=== PATIENT | male | born 1965 | race Hispanic/Latino ===

== ENCOUNTER → 2022-01-19 | Outpatient (CLI) | payer BC ==
[~2022-01-19] MED LIST: AMLO10TA4 PO; METO50 PO; SULF1TAB42 PO; TRAM50TA4 PO
[2022-01-19 12:34] LABS: BASOPHILS % (AUTO) 0.4 % (0.0-5.0); HEMATOCRIT 44.7 % (42-54); MEAN CORPUSCULAR HEMOGLOBIN 32.5 pg (27.0-33.0); MEAN CORPUSCULAR HGB CONC 33.8 g/dL (32.0-36.0); MEAN CORPUSCULAR VOLUME 96.3 fL (79-99); MONOCYTES % (AUTO) 13.9 % (3.0-13.0); NEUTROPHILS % (AUTO) 48.4 % (40.0-77.0); PLATELET COUNT (AUTO) 243 K/uL (130-400); RED BLOOD CELL COUNT(AUTO) 4.64 MIL/uL (4.50-6.20); RED CELL DISTRIBUTION WIDTH 12.6 % (11.0-15.5); WHITE BLOOD COUNT (AUTO) 6.9 K/uL (4.8-10.8)
[2022-01-19 13:00] LABS: ALBUMIN 3.6 g/dL (3.5-5.0); CREATININE 0.8 mg/dL (0.5-1.5); POTASSIUM 3.9 mmol/L (3.5-5.1); TOTAL PROTEIN, SERUM 7.2 g/dL (6.0-8.3)
== END | disposition home or self-care (01) ==
LOC: LAB 08:25
PROVIDERS: ATTEND Internal Medicine Cardiovascular Disease
DX: I10 Essential (primary) hypertension (principal); R07.9 Chest pain, unspecified; E78.00 Pure hypercholesterolemia, unspecified
CPT/HCPCS: 36415; 80053; 80061; 85025

== ENCOUNTER 2022-03-17 05:53 | Emergency (ER) | payer BC ==
[~2022-03-17] VITALS: Ht 162.6 cm; Wt 90.7 kg
[2022-03-17 06:15] LABS: BASOPHILS % (AUTO) 0.5 % (0.0-5.0); EOSINOPHILS % (AUTO) 1.8 % (0.0-8.0); HEMATOCRIT 44.1 % (42-54); LYMPHOCYTES % (AUTO) 32.9 % (21.0-51.0); MEAN CORPUSCULAR HEMOGLOBIN 33.1 pg (27.0-33.0); MEAN CORPUSCULAR HGB CONC 34.5 g/dL (32.0-36.0); MEAN CORPUSCULAR VOLUME 96.1 fL (79-99); MONOCYTES % (AUTO) 12.6 % (3.0-13.0); NEUTROPHILS % (AUTO) 51.9 % (40.0-77.0); PLATELET COUNT (AUTO) 187 K/uL (130-400); RED BLOOD CELL COUNT(AUTO) 4.59 MIL/uL (4.50-6.20); RED CELL DISTRIBUTION WIDTH 12.4 % (11.0-15.5); WHITE BLOOD COUNT (AUTO) 7.7 K/uL (4.8-10.8)
[2022-03-17 06:29] LABS: ALBUMIN 3.4 g/dL (3.5-5.0); CREATININE 0.8 mg/dL (0.5-1.5); POTASSIUM 4.5 mmol/L (3.5-5.1); TOTAL PROTEIN, SERUM 7.1 g/dL (6.0-8.3)
[2022-03-17] MEDS ORDERED: MECLIZINE HCL 25 MG TABLET PO ONE (06:30)
[2022-03-17 07:10] LABS: AMPHET/METH SCREEN,URINE NEGATIVE (NEGATIVE); BARBITURATE SCREEN, URINE NEGATIVE (NEGATIVE); BENZODIAZEPINES SCREEN,URINE NEGATIVE (NEGATIVE); CANNABINOID SCREEN,URINE NEGATIVE (NEGATIVE); COCAINE SCREEN,URINE NEGATIVE (NEGATIVE); OPIATE SCREEN,URINE NEGATIVE (NEGATIVE); PHENCYCLIDINE SCREEN,URINE NEGATIVE (NEGATIVE)
[2022-03-17 07:17] LABS: APPEARANCE,URINE CLEAR (CLEAR); BILIRUBIN,URINE NEGATIVE (NEGATIVE); COLOR,URINE LIGHT-YELLOW (YELLOW); GLUCOSE, URINE (UA) NEGATIVE (NEGATIVE); KETONES,URINE NEGATIVE (NEGATIVE); LEUKOCYTE ESTERASE ,URINE NEGATIVE Leu/uL (NEGATIVE); NITRATE,URINE NEGATIVE (NEGATIVE); OCCULT BLOOD,URINE SMALL (NEGATIVE); PH,URINE 5.5 (5.0-8.0); PROTEIN,URINE NEGATIVE (NEGATIVE); UROBILINOGEN,URINE 0.2 mg/dL (0.2-1.0)
[2022-03-17 07:22] LABS: MUCUS,URINE RARE LPF (None Seen); WBC,URINE 0-1 /HPF (0-1)
[2022-03-17] MEDS ORDERED: MECL-160 PO (07:43)
[2022-03-17 08:27] VITALS: BP 146/71
== END 2022-03-17 08:29 | disposition home or self-care (01) ==
LOC: EDH 05:53
DX: H81.10 Benign paroxysmal vertigo, unspecified ear (principal); E78.00 Pure hypercholesterolemia, unspecified; I10 Essential (primary) hypertension; Z79.899 Other long term (current) drug therapy; Z88.5 Allergy status to narcotic agent; Z95.5 Presence of coronary angioplasty implant and graft
CPT/HCPCS: 36415; 70450; 80053; 80305; 81001; 85025; 93005

== ENCOUNTER → 2023-05-02 | Outpatient (CLI) | payer BC ==
[~2023-05-02] MED LIST changes: +MECL-160 PO
[2023-05-02 11:08] LABS: ALBUMIN 3.9 g/dL (3.5-5.0); BILIRUBIN,TOTAL 0.8 mg/dL (0.2-1.0); CREATININE 0.8 mg/dL (0.5-1.3); POTASSIUM 4.4 mmol/L (3.5-5.1); TOTAL PROTEIN, SERUM 7.7 g/dL (6.0-8.3)
== END | disposition home or self-care (01) ==
LOC: LAB 09:06
PROVIDERS: ATTEND Internal Medicine Cardiovascular Disease
DX: E78.2 Mixed hyperlipidemia (principal)
CPT/HCPCS: 36415; 80053; 80061

== ENCOUNTER → 2024-01-29 | Outpatient (CLI) | payer BC ==
[~2024-01-29] MED LIST changes: -MECL-160 PO; +MECL-302 PO
[2024-01-29 12:15] LABS: ALBUMIN 3.9 g/dL (3.5-5.0); BILIRUBIN,TOTAL 0.6 mg/dL (0.2-1.0); CREATININE 0.8 mg/dL (0.5-1.3); POTASSIUM 4.2 mmol/L (3.5-5.1); TOTAL PROTEIN, SERUM 7.5 g/dL (6.0-8.3)
== END | disposition home or self-care (01) ==
LOC: LAB 11:07
PROVIDERS: ATTEND Internal Medicine Cardiovascular Disease
DX: E78.2 Mixed hyperlipidemia (principal)
CPT/HCPCS: 36415; 80053; 80061

== ENCOUNTER 2024-09-10 19:59 | Emergency (ER) | payer BC ==
[~2024-09-10] VITALS: Ht 160 cm; Wt 85.3 kg
[~2024-09-10 19:59] MED LIST changes: +AMLO-915 PO; -AMLO10TA4 PO
[2024-09-10] MEDS: ASPIRIN 325MG TAB PO ONE (20:51)
[2024-09-10] MEDS: NITROGLYCERIN 1GM OINT 1 INCH/1GM TD ONE (21:05)
[2024-09-10 21:14] LABS: IMMATURE GRANULOCYTE ABSOLUTE 0.03 K/uL (0-1); NUCLEATED RED BLOOD CELLS 0.0 % (0.0-0.19); PLATELET COUNT (AUTO) 228 K/uL (130-400); RED BLOOD CELL COUNT(AUTO) 4.08 MIL/uL (4.50-6.20); RED CELL DISTRIBUTION WIDTH 12.7 % (11.0-15.5); WHITE BLOOD COUNT (AUTO) 6.7 K/uL (4.8-10.8)
--- NOTE | 2024-09-10 21:17 | ERN ---
ED Note History of Present Illness Stated Complaint: C/O FATIGUED WITH PRESSURE TO CHEST AND SHOULDERS Chief Complaint: Fatigue Time Seen by MD: 20:08 Time Seen by Midlevel: 20:08 Dictation: The patient is a 59-year-old male with a history of CAD, hyperlipidemia, hypertension who presents to the emergency department with complaints of a fatigue, shortness of breath with the exertion, chest pressure onset yesterday. Patient reports occasional nonproductive cough. Denies fevers, sore throat or ear pain. Allergies: Coded Allergies: meperidine (Unverified Allergy, Unknown, 03/17/22) Home Meds Active Scripts Meclizine HCl (Meclizine HCl) 25 Mg Tablet, 25 MG PO TID for VERTIGO, #20 TAB Prov:LEIGH ANN MCCAULEY MD 03/17/22 Tramadol Hcl (Tramadol HCl) 50 Mg Tablet, 50 MG PO QIDP PRN for ABDOMINAL PAIN, #30 TAB Prov:MANNY PIERSON Jr., MD 07/31/15 Sulfamethoxazole/Trimethoprim (Bactrim Ds Tablet) 1 Each Tablet, 1 TAB PO BID, #30 TAB Prov:MANNY PIERSON Jr., MD 07/31/15 Metoprolol Tartrate (Lopressor 50Mg Tab) 50 Mg Tab, 50 MG PO BID, #60 TAB Prov:MANNY PIERSON Jr., MD 07/31/15 Reported Medications Amlodipine Besylate (Norvasc) 10 Mg Tablet, 10 MG PO DAILY, TAB 07/28/15 Past Medical History Past Medical History: High Cholesterol, Hypertension, Other Additional Past Medical Hx: HX OF MILD HEART ATTACK (2018) Surgical History: Other Surgical History Other: CARDIAC STENT Family History: Negative Social History: Negative, Lives with family RN Note Reviewed/Agreed w/PFSH: Yes Review of System Dictation Constitutional: Negative for fever,chills, and weight loss Eyes: Negative for injury, pain,redness, and discharge ENT: Negative for injury,pain or swelling Cardiovascular: Negative for palpitations, and edema positive for chest pain Respiratory: Negative for and wheezing, positive for shortness of breath, cough Abdomen/GI: Negative for abdominal pain, nausea, vomiting, diarrhea, and constipation Back: Negative for injury and pain : Negative for injury, bleeding and discharge MS/Extremity: Negative for injury and deformity Skin: Negative for rash, and discoloration Neuro: Negative for headache,numbness, tingling, and seizure positive for weakness Psych: Negative for suicide ideation, homicidal ideation, and hallucinations Initial Vital Sign VS Vital Signs Date Time Temp Pulse Resp B/P (MAP) Pulse Ox O2 Delivery O2 Flow Rate FiO2 09/10/24 20:01 98.8 85 20 160/69 969 Room Air 09/10/24 20:16 0 21 Physical Exam Dictation Vital Signs reviewed General Appearance: Alert, oriented x 3, no acute distress, well developed, nourished. Head and Face: non-traumatic. Eyes: PERRL, pink conjunctivas, eyelid no trauma, anterior chamber with arcus senilis. Ears: Pinnas intact and no signs of trauma or erythema ear canals clear and no discharge TM no erythema Nose: No discharge, no bleeding. Oropharynx: Mouth normal, tongue pink. pharynx clear,no erythema, tonsils no exudates, no abscesses noted, mucous membrane moist Neck: Supple, non-tender, no thyromegaly, no masses, no JVD, no bruits Breast:Deferred Chest:No tenderness, no crepitus, no paradoxical movement, no retractions Lungs:Clear, well-ventilated, symmetric, no rales, no wheezing, no rhonchi, no stridor, good breath sounds bilaterally Heart: Regular rate, regular rhythm, no murmur, no gallops Vascular: no peripheral edema, Abdomen: Soft, positive bowel sounds, nondistended, no guarding, nontender, no rebound, no masses no hepatomegaly, no splenomegaly, no Rincon's sign, no hernias. Rectal: Deferred Genital: Deferred Neurological: Normal speech, motor function intact, sensory function intact Musculoskeletal: Neck nontender, full range of motion, back nontender, full range of motion, Extremities: nontender, full range of motion Skin: Color pink, dry, no turgor, no rash, no lacerations, no abrasions, no contusions. Lymphatic: Deferred Results (Laboratory/Radiology) Laboratory/Radiology Laboratory Tests Test 09/10/24 20:30 09/10/24 20:35 09/10/24 20:48 09/10/24 22:10 White Blood Count 6.7 K/uL (4.8-10.8) Red Blood Count 4.08 MIL/uL (4.50-6.20) L Hemoglobin 13.5 g/dL (14.0-18.0) L Hematocrit 40.1 % (42-54) L Mean Corpuscular Volume 98.3 fL (79-99) Mean Corpuscular Hemoglobin 33.1 pg (27.0-33.0) H Mean Corpuscular Hemoglobin Concent 33.7 g/dL (32.0-36.0) Red Cell Distribution Width 12.7 % (11.0-15.5) Platelet Count 228 K/uL (130-400) Mean Platelet Volume 8.7 fL (7.5-10.5) Immature Granulocyte % (Auto) 0.4 % (0-1) Neutrophils (%) (Auto) 49.9 % (40.0-77.0) Lymphocytes (%) (Auto) 30.0 % (21.0-51.0) Monocytes (%) (Auto) 15.7 % (3.0-13.0) H Eosinophils (%) (Auto) 3.6 % (0.0-8.0) Basophils (%) (Auto) 0.4 % (0.0-5.0) Neutrophils # (Auto) 3.4 K/uL (1.8-7.7) Lymphocytes # (Auto) 2.0 K/uL (1.0-4.8) Monocytes # (Auto) 1.1 K/uL (0.1-1.0) H Eosinophils # (Auto) 0.24 K/uL (0.00-0.70) Basophils # (Auto) 0.03 K/uL (0.00-0.20) Absolute Immature Granulocyte (auto 0.03 K/uL (0-1) Nucleated Red Blood Cells 0.0 % (0.0-0.19) White Cell Morphology Comment See comments Sodium Level 145 mmol/L (136-145) Potassium Level 3.5 mmol/L (3.5-5.1) Chloride Level 107 mmol/L (101-111) Carbon Dioxide Level 29 mmol/L (21-32) Blood Urea Nitrogen 16 mg/dL (7-18) Creatinine 0.9 mg/dL (0.5-1.3) Glomerular Filtration Rate Calc 97 mL/min (>90) Random Glucose 122 mg/dL (70-105) H Total Calcium 7.9 mg/dL (8.5-10.1) L Magnesium Level 2.00 mg/dL (1.80-2.40) Total Creatine Kinase 68 U/L (21-232) Troponin I High Sensitivity 7 ng/L (4-75) 7 ng/L (4-75) B-Type Natriuretic Peptide 16 pg/mL (0-100) Influenza Type A Antigen Negative For Type A Influenza Type B Antigen Negative For Type B SARS-CoV-2 Antigen (Rapid) POSITIVE FOR SARS AG Group A Streptococcus Rapid negative (NEGATIVE) Urine Color LIGHT-YELLOW (YELLOW) Urine Appearance CLEAR (CLEAR) Urine pH 5.5 (5.0-8.0) Urine Specific [place] 1.027 (1.001-1.031) Urine Protein NEGATIVE mg/dL (NEGATIVE) Urine Glucose (UA) NEGATIVE mg/dL (NEGATIVE) Urine Ketones NEGATIVE mg/dL (NEGATIVE) Urine Occult Blood MODERATE (NEGATIVE) H Urine Nitrate NEGATIVE (NEGATIVE) Urine Bilirubin NEGATIVE mg/dL (NEGATIVE) Urine Urobilinogen 3 mg/dL (0.2-1.0) H Urine Leukocyte Esterase NEGATIVE [place]/uL Urine RBC 11-25 /HPF (0-1) H Urine WBC 0-1 /HPF (0-1) Urine Bacteria None /HPF (None Seen) Urine Opiates Screen NEGATIVE (NEGATIVE) Urine Barbiturates Screen NEGATIVE (NEGATIVE) Urine Phencyclidine Screen NEGATIVE (NEGATIVE) Urine Amphetamines Screen NEGATIVE (NEGATIVE) Urine Benzodiazepines Screen NEGATIVE (NEGATIVE) Urine Cocaine Screen NEGATIVE (NEGATIVE) Urine Marijuana (THC) Screen NEGATIVE (NEGATIVE) REASON: cp ORDERING PHYSICIAN: ALEJA GRIDER [employer]ER PROCEDURE: CXR1VW - CHEST 1VW EXAM: CR Chest, 1 View. CLINICAL HISTORY: COMPARISON: None provided. FINDINGS: LUNGS: There is no mass, infiltrate, or acute pulmonary abnormality. PLEURAL SPACES: No pleural effusion or pneumothorax. MEDIASTINUM: The cardiomediastinal silhouette is within normal limits. BONES: No aggressive appearing osseous lesion seen. IMPRESSION: No acute cardiopulmonary pathology is evident. /[place] Labs Reviewed?: Yes EKG: (+) rhythm (Sinus rhythm) EKG Comment: Date:09/10/2024 Time:2115 Ventricular rate:78 CT interval:139 QRS duration:99 QT/QTc:368/420 EKG interpretation: Sinus rhythm Reviewed by ED Attending no STEMI ED Course ED Course Orders Procedure Category Date Status Time Cbc With Differential LAB 09/10/24 Complete 20:25 Chest 1vw RAD 09/10/24 Resulted 20:25 12 Lead Ekg Tracing- EKG 09/10/24 Complete Technical 20:25 Nitroglycerin 1gm PHA 09/10/24 Complete Oint (Nitroglycerin 1g 20:30 Magnesium LAB 09/10/24 Complete 20:25 Creatine Kinase, Total LAB 09/10/24 Complete 20:25 Troponin I High LAB 09/10/24 Complete Sensitivity 20:25 Aspirin 325mg Tab PHA 09/10/24 Complete (Aspirin 325mg Tab) 20:30 Urinalysis Profile LAB 09/10/24 Complete 20:25 Basic Metabolic Panel LAB 09/10/24 Complete 20:25 Drug Screen Urine LAB 09/10/24 Complete 20:25 B-Type Natriuretic LAB 09/10/24 Complete Peptide 20:25 Covid19 (Sars Antigen LAB 09/10/24 Complete Rapid) 20:25 Influenza Type A & B, LAB 09/10/24 Complete Rapid 20:25 Rapid (Group A Strep) LAB 09/10/24 Complete 21:23 Troponin I High LAB 09/10/24 Complete Sensitivity 21:49 Current Medications Medications (Trade) Dose Ordered Sig/Yeimi Route PRN Reason Start Time Stop Time Status Last Admin Dose Admin Aspirin (Aspirin 325mg Tab) 325 mg ONCE ONCE PO 09/10/24 20:30 09/10/24 20:31 DC 09/10/24 20:51 Nitroglycerin (Nitroglycerin 1gm Oint) 1 inch ONCE ONCE TD 09/10/24 20:30 09/10/24 20:31 DC 09/10/24 21:05 Vital Signs Date Time Temp Pulse Resp B/P (MAP) Pulse Ox O2 Delivery O2 Flow Rate FiO2 09/10/24 22:40 98.8 68 16 148/78 94 Room Air* 0 21 09/10/24 20:16 98.8 88 20 154/69 95 Room Air* 0 21 09/10/24 20:01 98.8 85 20 160/69 969 Room Air HEART Score Response (Comments) Value History: Low suspicion (0) 0 EKG: Normal 0 Age: 45-65yrs (+1) 1 Risk Factors: 1-2 risk factors (+1) 1 Initial Troponin: Normal limit (0) 0 Total 2 Medical Decision Making MDM The patient is a 59-year-old male with a history of CAD, hyperlipidemia, hypertension who presents to the emergency department with complaints of a fatigue, shortness of breath with the exertion, chest pressure onset yesterday. Patient reports occasional nonproductive cough. Denies fevers, sore throat or ear pain. CBC showed no leukocytosis, mild normocytic anemia, chemistry showed no electrolyte imbalance, negative troponin x2, serology positive for COVID-19 infection. Chest x-ray showed no acute pathology. On physical exam patient is in no acute distress, nontoxic appearance. Patient currently not having any chest pain. Symptoms probably related to COVID-19 infection. Spoke to patient about lab results and imaging. At this time patient feels like he is okay to go home and follow up with PCP and Cardiology. Patient with no hypoxemia, no tachycardia. Differential diagnosis: ACS, upper respiratory infection, electrolyte imbalance, dehydration, pneumonia Need for hospitalization: Patient does not meet criteria for hospitalization. There are no social concerns with this patient. DX & DISP Disposition: Discharge Departure Impression: Primary Impression: COVID-19 virus infection Condition: Stable Scripts Nirmatrelvir/Ritonavir (Paxlovid 300-100 mg Dose Pack) 300 Mg (150 Mg X 2)-100 Mg Tab.ds.pk 1 EACH PO BID for 5 Days, #10 TAB Prov: ALEJA GRIDER [facility] 09/10/24 Additional Instructions: Your labs showed you tested positive for COVID. Your chest x-ray was normal. Please follow up with your primary doctor in 1-2 days. If you develop severe shortness of breath or chest pain or symptoms worsen please return to ER FOLLOW-UP WITH PRIMARY CARE PROVIDER IN 1 TO 2 DAYS. TAKE MEDICATIONS DIRECTED HERE IN THE EMERGENCY ROOM. OKAY TO CONTINUE HOME MEDICATIONS UNLESS OTHERWISE DISCUSSED DURING YOUR VISIT IN THE EMERGENCY ROOM TODAY. RETURN TO YOUR NEAREST EMERGENCY ROOM IF SYMPTOMS WORSEN OR IF THERE IS NO IMPROVEMENT. CALL 911 IF YOU NEED IMMEDIATE ASSISTANCE. TAKE TYLENOL [id number] NEEDED AND IF NO CONTRAINDICATIONS ARE PRESENT. INCREASE ORAL HYDRATION. A WOUND CULTURE OR URINE CULTURE WAS ORDERED HERE IN THE EMERGENCY ROOM DEPARTMENT PLEASE FOLLOW-UP WITH PRIMARY CARE PROVIDER AND ADVISE THEM TO GET REPEAT PORTS FROM OUR FACILITY. IF YOU HAD ANY SANDY WRAP/SPLINTS THAT WERE APPLIED HERE, PLEASE DO NOT REMOVE THEM UNTIL YOU SEE YOUR PRIMARY CARE OR SPECIALTY. Referrals: JOANNA CAI MD (PCP) Time of Disposition: 23:32 I have reviewed the case, and I agree with, Diagnosis and Plan ALEJA GRIDER [facility] Sep 10, 2024 21:17
[2024-09-10 21:21] LABS: CREATININE 0.9 mg/dL (0.5-1.3); GLOMERULAR FILTR. RATE CALC 97.0 mL/min (>90); GLUCOSE,RANDOM 122.0 mg/dL (70-105); SODIUM SERUM 145.0 mmol/L (136-145); UREA NITROGEN, BLOOD 16.0 mg/dL (7-18)
--- NOTE | 2024-09-10 21:21 | EKG ---
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
[2024-09-10 21:31] LABS: CREATINE KINASE, TOTAL 68.0 U/L (21-232)
[2024-09-10 21:42] LABS: INFLUENZA TYPE A Negative For Type A (NEGATIVE); INFLUENZA TYPE B Negative For Type B (NEGATIVE)
[2024-09-10 21:50] LABS: APPEARANCE,URINE CLEAR (CLEAR); GLUCOSE, URINE (UA) NEGATIVE (NEGATIVE); LEUKOCYTE ESTERASE ,URINE NEGATIVE Leu/uL (NEGATIVE); NITRATE,URINE NEGATIVE (NEGATIVE); OCCULT BLOOD,URINE MODERATE (NEGATIVE)
[2024-09-10 21:56] LABS: AMPHET/METH SCREEN,URINE NEGATIVE (NEGATIVE); BARBITURATE SCREEN, URINE NEGATIVE (NEGATIVE); CANNABINOID SCREEN,URINE NEGATIVE (NEGATIVE); COCAINE SCREEN,URINE NEGATIVE (NEGATIVE)
[2024-09-10 21:57] LABS: ADD UA MICROSCOPIC YES
[2024-09-10 22:03] LABS: COVID19 (SARS ANTIGEN RAPID) POSITIVE FOR SARS AG (NEGATIVE)
--- NOTE | 2024-09-10 23:04 | HMCIMG ---
EXAM: CR Chest, 1 View. CLINICAL HISTORY: cp COMPARISON: None provided. FINDINGS: LUNGS: There is no mass, infiltrate, or acute pulmonary abnormality. PLEURAL SPACES: No pleural effusion or pneumothorax. MEDIASTINUM: The cardiomediastinal silhouette is within normal limits. BONES: No aggressive appearing osseous lesion seen. IMPRESSION: No acute cardiopulmonary pathology is evident. /[place]
[2024-09-10] MEDS ORDERED: NIRM1TAB9 PO (23:32)
[2024-09-10 23:40] VITALS: BP 147/78; PULSE 68; RESP 18; TEMP 98.8; O2SAT 97
== END 2024-09-10 23:49 | disposition home or self-care (01) ==
LOC: EDH 19:59
DX: U07.1 COVID-19 (principal); E78.00 Pure hypercholesterolemia, unspecified; I10 Essential (primary) hypertension; Z79.899 Other long term (current) drug therapy; Z88.5 Allergy status to narcotic agent; Z95.5 Presence of coronary angioplasty implant and graft
CPT/HCPCS: 99284; 96374; 71045; 87426; 82550; 83735; 84484 ×2; 80048; 83880; 80305; 85025; 87880; 87804 ×2; 36415; 93005; 81001; J1100